=== PATIENT | female | born 1960 | race Caucasian/White ===

== ENCOUNTER 2016-05-22 18:54 | Inpatient (IN) | payer OTHER ==
[~2016-05-22] VITALS: Ht 162.6 cm; Wt 72.1 kg
[2016-05-22 21:21] VITALS: BP 144/85; PULSE 82; TEMP 36.6; O2SAT 95; Ht 162.6 cm; Wt 72.1 kg
[2016-05-22] MEDS ORDERED: ALUMINUM/MAGNESIUM/SIMETH (MAALOX MAX) 30 ML UDC PO PRN (21:45)
[2016-05-22] MEDS ORDERED: POLYETHYLENE (MIRALAX) 17 GM PACK PO PRN (21:45)
[2016-05-22] MEDS ORDERED: ACETAMINOPHEN 325 MG TAB PO PRN (21:45)
[2016-05-22] MEDS ORDERED: CEFTRIAXONE SOD INJ 2,000 MG in DEXTROSE 5% 50ML 50 ML IV SCH (21:45)
[2016-05-22] MEDS ORDERED: MAGNESIUM HYDROXIDE SUSP 30 ML UDC PO PRN (21:45)
[2016-05-22] MEDS ORDERED: ONDANSETRON INJ 2 MG/ML 2 ML VIAL IV PRN (21:45)
[2016-05-22] MEDS: SODIUM CHLORIDE 0.9% 1000ML 1,000 ML IV SCH (21:45)
[2016-05-22] MEDS ORDERED: MoRPHine SULFATE 2 MG/ML CARP IV PRN (22:15)
[2016-05-22] MEDS ORDERED: PATIENT'S ALLERGY INFO NEEDS ENTERED SCH (22:15)
--- NOTE | 2016-05-22 22:19 | History and Physical ---
History & Physical Date & Time of Service: May 22, 2016 at 22:07 Chief Complaint: Acute Kidney Stone Primary Care Physician: Ariel Tejeda D.O. History of Present Illness Source: patient This is a 55 y/o F with a h/o of RA, GERD who presents as a direct transfer from [place] for nephrolithiasis with pyelo and hydronephrosis. She reports having UTI symptoms for the last 2 weeks. She was treated with Macrobid initially but continued to have symptoms despite treatment. She was subsequently taken off the macrobid and told to follow up with Gynecology for persistent burning in her groin area. Clinical Care Leader ordered a U/A and UC that were normal. She presented to [place] ED this morning due to Right sided low back pain. She has had Nausea without vomiting intermittently over the last two weeks. Denies history of nephrolithiasis. She denies fevers, chills, chest pain, shortness of breath, headaches, dizziness , lower extremity weakness, hematuria, melena, hematochezia While at [facility], she had an Abdominal/pelvic CT scan that was remarkable for 4 mm calculus in the Right UV junction with moderate hydronephrosis as well as perinephric fat stranding that reflects pyelonephritis. She also had a Head CT that was negative. Pertinent Labs from [place]: CBC with WBC of 18.5 (81% neutrophils) U/A with positive Nitrites, 2+ chan, 3+ leuck, negative blood, Moderate WBC, CMP- Cr - 1.2, GFR of 49, total chan of 1.2, alt- 103, alk phos of 347 Lactate was normal Social History Smoking Status: Current Every Day Smoker Alcohol Use: occasionally Drug Use: none Housing status: lives with family Allergies Coded Allergies: Amoxicillin (Verified Allergy, Unknown, RASH, 05/22/16) Cefaclor (Verified Allergy, Unknown, HIVES, 05/22/16) Levofloxacin (Verified Allergy, Unknown, Tachycardic, anxious, 05/22/16) Meperidine (Verified Allergy, Unknown, HIVES, 05/22/16) Moxifloxacin (Verified Allergy, Unknown, Tachycardic,anxious, 05/22/16) Nitrofurantoin (Verified Allergy, Unknown, Head Ache, Nausea, 05/22/16) Yellow Jacket (Verified Allergy, Unknown, HIVES, 05/22/16) Home Medications Scheduled Calcium Carbonate-Cholecalcife (Caltrate 600+D), PO BID Cholecalciferol (Vitamin D), PO DAILY Hydroxychloroquine Sulfate (Plaquenil), 200 MG PO BID Naproxen Tab (Naprosyn), 600 MG PO BID Omeprazole (Prilosec), 20 MG PO DAILY Review of Systems Constitutional: No chills, No fever Respiratory: No cough, No dyspnea at rest, No dyspnea on exertion, No shortness of breath, No sputum, No wheezing Cardiovascular: No chest pain Abdomen: + nausea, + pain, No vomiting Musculoskeletal: + muscle pain Genitourinary - Female: + dysuria, + urinary frequency, + urinary urgency Physical Exam Vital Signs Date Time Temp Pulse Resp B/P Pulse Ox O2 Delivery O2 Flow Rate FiO2 05/22/16 21:21 36.6 82 16 144/85 95 Room Air General Appearance: no apparent distress Eyes: normal inspection, PERRL, EOMI ENT: hearing grossly normal Neck: supple, thyroid normal Respiratory/Chest: lungs clear, normal breath sounds, no respiratory distress, no accessory muscle use Cardiovascular: regular rate, rhythm, no edema, no murmur Abdomen/GI: normal bowel sounds, non tender, soft, + pertinent finding ( suprapubic tenderness) Back: + right CVA tenderness Neurologic/Psych: no motor/sensory deficits, alert, normal mood/affect, oriented x 3 Diagnostics Laboratory Results Results Past 24 Hours Test 05/22/16 21:43 Range/Units Microbiology Results 05/22/16 Urine Culture, Ordered Pending Impression Assessment and Plan This is a 55 y/o F who presents with nephrolithiasis, Pyelo and Hydronephrosis Nephrolithiasis with Pyelo and [place]: NPO after midnight Rocephin q24 IV NSS Zofran for Nausea Urology Consult CT from [facility] reviewed above Repeat CBC Am U/a, UC, BC pending Elevated liver enzymes: Repeat cmp in the AM RA: Continue Plaquinil (med rec not completed yet) Gerd: Protonix DVT prophy: Heparin Code: Full Advanced Directives Existing Living Will: Yes Existing Power of Marketing Services Coordinator: Yes (Brittnee Zaman) VTE Prophylaxis VTE Risk Assessment Done? Y/N: Yes Risk Level: Moderate Assessment and Plan Attending Addendum: I have physically seen and examined this patient, have directed their medical care, have supervised the medical residents activities, and agree with the H&P as noted above, with the following changes: NONE ex The patient is awake, well-developed and adequately nourished, alert and oriented 3, normocephalic and atraumatic, lying in bed and in no acute distress. HEENT--PERRL, EOMI, mucous membranes and oropharynx dry. Neck--supple, no JVD or bruits, thyroid normal, trachea midline, no adenopathy. Heart--normal S1 and S2, no extra beats, no murmurs, rubs or gallops. Lungs--clear bilaterally with good air movement, no respiratory distress, no accessory muscle use. Abdomen--normal bowel sounds and soft, nontender and nondistended, no hernias or masses, no organomegaly. Extremities--no cyanosis, clubbing or edema. There are good distal pulses b/l. Dermatologic--normal skin turgor, normal color, warm and dry, no abnormal lymph nodes, no rash. Neurologic--cranial nerves II through XII grossly intact, motor and sensory examination normal. Rheumatologic--normal range of motion, nontender, muscles and joints. Psychiatric--normal affect. Assessment and Plan: 4 mm right UVJ obstructing kidney stone with moderate right hydronephrosis-- patient be made nothing by mouth after midnight. Admitted to the medical surgical floor. Place on normal saline. Ceftriaxone 1 g IV daily. Zofran 4 mg IV every 6 hours when necessary. Protonix 40 mg IV daily. Consult urology.
[2016-05-22] MEDS ORDERED: NPR375 PO (22:40)
[2016-05-22] MEDS ORDERED: HYDR200T5 PO (22:40)
[2016-05-22] MEDS ORDERED: CHOL100010 PO (22:40)
[2016-05-22] MEDS ORDERED: PRLSR20 PO (22:40)
[2016-05-22] MEDS ORDERED: CALC-354 PO (22:40)
[2016-05-22 22:55] LABS: MANUAL MICROSCOPIC REQUIRED? YES; REVIEW REQ? NO; URINE APPEARANCE CLEAR (CLEAR); URINE COLOR RED
[2016-05-22 22:56] LABS: SULFASALICYLIC ACID NEG (NEG)
[2016-05-22 22:58] VITALS: BP 121/79; PULSE 88; TEMP 36.4; O2SAT 95
[2016-05-22 22:59] LABS: URINE BACTERIA NEG (NEG)
[2016-05-23] MEDS: CIPROFLOXACIN 400MG / D5W IV SCH ×2 (03:16→16:57)
[2016-05-23 07:03] VITALS: BP 105/64; PULSE 72; TEMP 36.6; O2SAT 95
[2016-05-23 07:19] LABS: BASO % 0.3 %; BASO ABS # 0.04 K/uL (0-0.2); COMPLETE YES; EOS % 2.9 %; HEMATOCRIT 33.1 % (37-47); IG% 0.4 %; LYMPH % 21.5 %; LYMPH ABS # 2.47 K/uL (1.2-3.4); MEAN CELL VOLUME 88.7 fL (80-100); MEAN CORPUSCULAR HEMOGLOBIN 30.8 pg (25-34); MEAN CORPUSCULAR HGB CONC 34.7 g/dl (32-36); MEAN PLATELET VOLUME 8.7 fL (7.4-10.4); MONO % 10.6 %; NEUT % 64.3 %; PLATELET COUNT 372 K/uL (130-400); RED BLOOD COUNT 3.73 M/uL (4.2-5.4)
[2016-05-23] MEDS ORDERED: TAMSULOSIN HCL 0.4 MG CAP PO ONE (07:30)
[2016-05-23 07:32] LABS: PROTHROMBIN TIME (PATIENT) 10.7 SECONDS (9.0-12.0)
--- NOTE | 2016-05-23 07:46 | Urology Consultation ---
History General Date of Service: May 23, 2016. Chief Complaint: right flank pain Primary Care Physician: Ariel Tejeda D.O. Pt seen a urologist before?: No History of Present Illness 55 yo female transferred to [facility] from [facility] for right flank pain and a CT scan showing a 4mm right UVJ stone. The pt has no previous hx of stones. She reports her pain started early yesterday morning and was accompanied with nausea and dysuria. + subjective fevers as well, although she did not take her temperature. She has been afebrile this admission. White count this morning is 11.5. Cr is pending. Blood and urine cultures pending. She reports her pain has currently improved this morning. + nausea overnight, but now improved as well. Imaging Imaging: CT (performed in [place]) Laboratory Last 24 Hours Test 05/22/16 22:30 05/23/16 06:55 Urine Color RED Urine Appearance CLEAR Urine pH Urine Specific [place] Urine Protein NEG Urine Glucose (UA) Urine Ketones Urine Occult Blood Urine Nitrite Urine Bilirubin Urine Urobilinogen Urine Leukocyte Esterase Urine RBC 10-30 /hpf Urine WBC 5-10 /hpf Urine Epithelial Cells 10-20 /lpf Urine Calcium Oxalate Crystals PRESENT Urine Bacteria NEG White Blood Count 11.50 K/uL Red Blood Count 3.73 M/uL Hemoglobin 11.5 g/dL Hematocrit 33.1 % Mean Corpuscular Volume 88.7 fL Mean Corpuscular Hemoglobin 30.8 pg Mean Corpuscular Hemoglobin Concent 34.7 g/dl Platelet Count 372 K/uL Mean Platelet Volume 8.7 fL Neutrophils (%) (Auto) 64.3 % Lymphocytes (%) (Auto) 21.5 % Monocytes (%) (Auto) 10.6 % Eosinophils (%) (Auto) 2.9 % Basophils (%) (Auto) 0.3 % Neutrophils # (Auto) 7.39 K/uL Lymphocytes # (Auto) 2.47 K/uL Monocytes # (Auto) 1.22 K/uL Eosinophils # (Auto) 0.33 K/uL Basophils # (Auto) 0.04 K/uL RDW Standard Deviation 48.5 fL RDW Coefficient of Variation 15.0 % Immature Granulocyte % (Auto) 0.4 % Immature Granulocyte # (Auto) 0.05 K/uL Prothrombin Time 10.7 SECONDS Prothromb Time International Ratio 1.0 Past History GERD, rheumatoid arthritis Past Surgical History: appendectomy, cholecystectomy, tonsillectomy, other ( breast surgery) Family History Breast cancer, [place] Social History Hx Tobacco Use In Past Year?: Yes Smoking: other (current everyday smoker) Alcohol: occasional Housing status: lives with family Allergies Coded Allergies: Amoxicillin (Verified Allergy, Unknown, RASH, 05/22/16) Cefaclor (Verified Allergy, Unknown, HIVES, 05/22/16) Levofloxacin (Verified Allergy, Unknown, Tachycardic, anxious, 05/22/16) Meperidine (Verified Allergy, Unknown, HIVES, 05/22/16) Moxifloxacin (Verified Allergy, Unknown, Tachycardic,anxious, 05/22/16) Nitrofurantoin (Verified Allergy, Unknown, Head Ache, Nausea, 05/22/16) Yellow Jacket (Verified Allergy, Unknown, HIVES, 05/22/16) Medications Home Medications: Home Meds and Scripts Medications Dose Route/Sig Max Daily Dose Days Date Category Vitamin D (Cholecalciferol) 1,000 Unit Tab PO DAILY 05/22/16 Reported Plaquenil (Hydroxychloroquine Sulfate) 200 Mg Tab 200 Mg PO BID 05/22/16 Reported Prilosec (Omeprazole) 20 Mg Capcr 20 Mg PO DAILY 05/22/16 Reported Naprosyn (Naproxen) 375 Mg Tab 600 Mg PO BID 05/22/16 Reported Caltrate 600+D (Calcium Carbonate-Cholecalcife) 1 Tab Tab PO BID 05/22/16 Reported Inpatient Medications: Current Inpatient Medications Medications (Trade) Dose Ordered Sig/Tez Route Start Time Stop Time Status Last Admin Dose Admin Acetaminophen (Tylenol Tab) 650 mg Q4H PRN PO 05/22/16 21:45 06/21/16 21:44 Al Hydrox/Mg Hydrox/Simethicone (Maalox Max Susp) 15 ml Q4H PRN PO 05/22/16 21:45 06/21/16 21:44 Magnesium Hydroxide (Milk Of Magnesia Susp) 30 ml Q6H PRN PO 05/22/16 21:45 06/21/16 21:44 Polyethylene (Miralax Powder Packet) 17 gm DAILY PRN PO 05/22/16 21:45 06/21/16 21:44 Ondansetron HCl (Zofran Inj) 4 mg Q6H PRN IV 05/22/16 21:45 06/21/16 21:44 05/23/16 03:18 4 MG Heparin Sodium (Porcine) 5000 unit 5,000 unit Q12H SQ 05/22/16 21:45 06/21/16 21:44 UNV Sodium Chloride (Nss 1000ml) 1,000 ml @ 100 mls/hr Q10H IV 05/22/16 21:45 06/21/16 21:44 05/22/16 21:45 100 MLS/HR Morphine Sulfate 2 mg 2 mg Q4H PRN IV 05/22/16 22:15 06/05/16 22:14 Pantoprazole Sodium 40 mg/ Syringe 10 ml @ 5 mls/min DAILY@11 IV 05/23/16 11:00 06/22/16 10:59 Ciprofloxacin/ Dextrose/Prmx (Cipro / D5w/ Premixed D5W) 200 ml @ 100 mls/hr Q12H IV 05/23/16 03:00 06/02/16 02:59 05/23/16 03:16 100 MLS/HR Review of Systems Review of Systems Constitutional: No chills, No fever Eyes: No double vision Neurological: No dizzy Endocrine: No excessive thirst Gastrointestinal: No abdominal pain, No nausea, No vomiting Cardiovascular: No chest pain Respiratory: No shortness of breath Skin: No rash Musculoskeletal: No back pain Female : + painful urination, No blood in urine Physical Exam Vital Signs: Vital Signs Past 12 Hours Date Time Temp Pulse Resp B/P Pulse Ox O2 Delivery O2 Flow Rate FiO2 05/23/16 07:03 36.6 72 20 105/64 95 Room Air 05/23/16 03:52 Room Air 05/22/16 23:30 Room Air 05/22/16 22:58 36.4 88 14 121/79 95 Room Air 05/22/16 21:21 36.6 82 16 144/85 95 Room Air Physical Exam: General Appearance: no apparent distress Eyes: bilateral eyes normal inspection ENT: hearing grossly normal Neck: no JVD Respiratory/Chest: no respiratory distress, no accessory muscle use Cardiovascular: no JVD Extremities: normal inspection Neurologic/Psychiatric: alert, normal mood/affect, oriented x 3 Skin: normal color Assessment & Plan Assessment & Plan A/P: 4mm right UVJ stone AFVSS. No evidence of sepsis at this time. Pain controlled. Stone small enough to pass on its own. Would recommend a trial of passage today with MET. She is agreeable. Would need urgent stent placement in the setting of fever. Will provide a diet today, and make her NPO after midnight in the event she needs stent placement tomorrow for worsening pain. Will start Flomax. Strain all urine. Supportive management with pain control and IVF. Will get a KUB and labs in the AM. Thanks for the consult. Will continue to follow along with primary service at this time.
[2016-05-23 07:50] LABS: BUN/CREATININE RATIO 26.3 (10-20); CREATININE 0.97 mg/dl (0.60-1.20); POTASSIUM 4.5 mmol/L (3.5-5.1)
[2016-05-23 07:53] LABS: ALB/GLOB RATIO 0.8 (0.9-2)
[2016-05-23] MEDS: SODIUM CHLORIDE 0.9% 1000ML 1,000 ML IV SCH ×2 (08:25→18:02)
[2016-05-23] MEDS ORDERED: NURSING VERBAL MED ORDER ONE (08:45)
[2016-05-23] MEDS: HEPARIN SOD 5000 UNIT/0.5 ML CARP SQ SCH ×2 (08:58→20:43)
[2016-05-23] MEDS: PANTOprazole SOD 40 MG TAB PO SCH (09:41)
[2016-05-23] MEDS: CHOLECALCIFEROL 1000 INTER.UNIT TAB PO SCH (09:42)
[2016-05-23] MEDS: HYDROXYCHLOROQUINE SULFATE 200 MG TAB PO SCH ×2 (09:42→20:41)
[2016-05-23] MEDS: CALCIUM 600MG + VIT D 400 IU TAB PO SCH ×2 (09:43→20:40)
[2016-05-23] MEDS ORDERED: PANTOprazole INJ 40 MG in SYRINGE 0 ML IV SCH (11:00)
--- NOTE | 2016-05-23 12:24 | Progress Note ---
Subjective Date of Service: May 23, 2016. Subjective Pt evaluation today including: conversation w/ patient, physical exam, chart review, lab review, review of studies, conversation w/ system sales consultant, review of inpatient medication list Doing well, sitting up in bed, no complaining Review of Systems Constitutional: No chills, No fatigue, No fever, No problem reported, No sweats , No weakness, No weight loss Eyes: No diplopia, No discharge, No eye pain, No redness, No worsening of vision ENT: No dental problems, No hearing loss, No nasal symptoms, No sore throat, No tinnitus, No trouble swallowing, No unusual epistaxis Respiratory: No cough, No dyspnea at rest, No dyspnea on exertion, No hemoptysis, No shortness of breath, No sputum, No wheezing Cardiac: No PND, No chest pain, No claudication, No edema, No orthopnea, No palpitations Abdomen: No constipation, No diarrhea, No nausea, No pain, No vomiting Musculoskeletal: No calf pain, No joint pain, No muscle pain, No swelling Female : No abnormal vaginal bleeding, No dysuria, No hematuria, No incontinence, No urinary frequency, No vaginal discharge Neurologic: No balance problems, No memory loss, No numbness/tingling, No paralysis, No vertigo, No weakness Psychiatric: No anhedonism, No anxiety, No depression symptoms, No insomnia, No substance abuse Heme: No abnormal bleeding/bruising, No clotting problems, No night sweats, No swollen lymph nodes Endo: No excessive thirst, No excessive urination, No fatigue Skin: No bleeding, No color change, No itch, No new/changing skin lesions, No rash Objective Vital Signs Date Time Temp Pulse Resp B/P Pulse Ox O2 Delivery O2 Flow Rate FiO2 05/23/16 09:00 Room Air 05/23/16 07:03 36.6 72 20 105/64 95 Room Air 05/23/16 03:52 Room Air 05/22/16 23:30 Room Air 05/22/16 22:58 36.4 88 14 121/79 95 Room Air 05/22/16 21:21 36.6 82 16 144/85 95 Room Air Physical Exam General Appearance: WD/WN, no apparent distress Eyes: normal inspection, PERRL, EOMI, sclerae normal ENT: normal ENT inspection, hearing grossly normal, pharynx normal Neck: supple, no adenopathy, thyroid normal, no JVD, no carotid bruits, trachea midline Respiratory/Chest: chest non-tender, lungs clear, normal breath sounds, no respiratory distress, no accessory muscle use Cardiovascular: regular rate, rhythm, no edema, no gallop, no JVD, no murmur Abdomen: normal bowel sounds, non tender, soft, no organomegaly, no pulsatile mass, + pertinent finding (bilateral CVA was nontender) Extremities: normal range of motion, non-tender, normal inspection, no pedal edema, no calf tenderness, normal capillary refill, pelvis stable Neurologic/Psychiatric: aircraft machinist II-XII nml as tested, no motor/sensory deficits, alert, normal mood/affect, oriented x 3 Skin: normal color, warm/dry, no rash Lymphatic: no adenopathy Laboratory Results Last 24 Hours Test 05/22/16 22:30 05/23/16 06:55 Urine Color RED Urine Appearance CLEAR Urine pH Urine Specific [place] Urine Protein NEG Urine Glucose (UA) Urine Ketones Urine Occult Blood Urine Nitrite Urine Bilirubin Urine Urobilinogen Urine Leukocyte Esterase Urine RBC 10-30 /hpf Urine WBC 5-10 /hpf Urine Epithelial Cells 10-20 /lpf Urine Calcium Oxalate Crystals PRESENT Urine Bacteria NEG White Blood Count 11.50 K/uL Red Blood Count 3.73 M/uL Hemoglobin 11.5 g/dL Hematocrit 33.1 % Mean Corpuscular Volume 88.7 fL Mean Corpuscular Hemoglobin 30.8 pg Mean Corpuscular Hemoglobin Concent 34.7 g/dl Platelet Count 372 K/uL Mean Platelet Volume 8.7 fL Neutrophils (%) (Auto) 64.3 % Lymphocytes (%) (Auto) 21.5 % Monocytes (%) (Auto) 10.6 % Eosinophils (%) (Auto) 2.9 % Basophils (%) (Auto) 0.3 % Neutrophils # (Auto) 7.39 K/uL Lymphocytes # (Auto) 2.47 K/uL Monocytes # (Auto) 1.22 K/uL Eosinophils # (Auto) 0.33 K/uL Basophils # (Auto) 0.04 K/uL RDW Standard Deviation 48.5 fL RDW Coefficient of Variation 15.0 % Immature Granulocyte % (Auto) 0.4 % Immature Granulocyte # (Auto) 0.05 K/uL Prothrombin Time 10.7 SECONDS Prothromb Time International Ratio 1.0 Sodium Level 141 mmol/L Potassium Level 4.5 mmol/L Chloride Level 108 mmol/L Carbon Dioxide Level 27 mmol/L Anion Gap 6.0 mmol/L Blood Urea Nitrogen 26 mg/dl Creatinine 0.97 mg/dl Est Creatinine Clear Calc Drug Dose 62.3 ml/min Estimated GFR () 75.1 Estimated GFR (Non- 64.8 BUN/Creatinine Ratio 26.3 Random Glucose 93 mg/dl Calcium Level 9.0 mg/dl Total Bilirubin 0.8 mg/dl Aspartate Amino Transf (AST/SGOT) 19 U/L Alanine Aminotransferase (ALT/SGPT) 71 U/L Alkaline Phosphatase 261 U/L Total Protein 6.0 gm/dl Albumin 2.7 gm/dl Globulin 3.3 gm/dl Albumin/Globulin Ratio 0.8 Assessment and Plan 55 y/o F direct transfer from [place] for nephrolithiasis with pyelo and hydronephrosis on 05/22/2016 Per report having UTI symptoms for the last 2 weeks. She was treated with Macrobid initially but continued to have symptoms despite treatment. was subsequently taken off the macrobid and told to follow up with Gynecology for persistent burning in her groin area. [employer] Machine Operator ordered a U/A and UC that were normal. She presented to [place] ED this morning due to Right sided low back pain, Associated with Nausea without vomiting intermittently over the last two weeks. Denies history of nephrolithiasis. While at [place], she had an Abdominal/pelvic CT scan that was remarkable for 4 mm calculus in the Right UV junction with moderate hydronephrosis as well as perinephric fat stranding that reflects pyelonephritis. She also had a Head CT that was negative. Pertinent Labs from [place]: CBC with WBC of 18.5 (81% neutrophils) U/A with positive Nitrites, 2+ chan, 3+ leuck, negative blood, Moderate WBC, CMP- Cr - 1.2, GFR of 49, total chan of 1.2, alt- 103, alk phos of 347 Lactate was normal A/P: 4mm right UVJ stone Pyelonephritis in the right side No evidence of sepsis at this time. Continue antibiotics, IV fluid, Pain controlled. Urology saw patient, Stone small enough to pass on its own. make her NPO after midnight in the event she needs stent placement tomorrow for worsening pain , KUB ordered for tomorrow Continue Flomax. Continue Cipro. Zofran 4 mg IV every 6 hours when necessary. Protonix 40 mg IV daily. DVT prophylaxis covered Continued [facility] stay due to: multiple IV medications needed Discharge planning: home
[2016-05-23 15:04] VITALS: BP 108/65; PULSE 87; TEMP 37; O2SAT 96
[2016-05-23] MEDS ORDERED: TAMSULOSIN HCL 0.4 MG CAP PO SCH (21:00)
[2016-05-24 00:04] VITALS: BP 130/74; PULSE 92; TEMP 36.7; O2SAT 96
[2016-05-24] MEDS: SODIUM CHLORIDE 0.9% 1000ML 1,000 ML IV SCH (02:49)
[2016-05-24] MEDS: CIPROFLOXACIN 400MG / D5W IV SCH (02:49)
[2016-05-24 07:34] VITALS: BP 118/71; PULSE 83; TEMP 36.5; O2SAT 96
[2016-05-24 07:46] LABS: MEAN CELL VOLUME 92.7 fL (80-100); MEAN CORPUSCULAR HEMOGLOBIN 31.2 pg (25-34); MEAN CORPUSCULAR HGB CONC 33.7 g/dl (32-36); MEAN PLATELET VOLUME 9.2 fL (7.4-10.4); PLATELET COUNT 423 K/uL (130-400); WHITE BLOOD COUNT 8.32 K/uL (4.8-10.8)
--- NOTE | 2016-05-24 07:53 | DIAGNOSTIC IMAGING REPORT ---
KUB CLINICAL HISTORY: Nephrolithiasis. Reported history of right vesicoureteral junction stone. FINDINGS: 2 AP supine abdominal radiographs are obtained. No prior studies are available for comparison at the time of dictation. There is a nonobstructed abdominal bowel gas pattern noting moderate colonic fecal retention. Cholecystectomy clips are identified. No calcifications are seen projecting over either kidney or along the course of the right ureter. There is a 4 mm calcification in the left hemipelvis which is indeterminant. An additional phlebolith is noted in the left pelvis. The skeletal structures appear osteopenic. The bony structures appear intact. IMPRESSION: 1. No calcifications are seen projecting over either kidney or along the course of the right ureter. 2. There is a 4 mm calcification the left hemipelvis. This is indeterminant and could represent a left pelvic phlebolith or possibly a distal left ureteral stone. 3. Moderate constipation. Electronically signed by: Yaniv Patino M.D. 05/24/2016 7:51 AM Dictated Date/Time: 05/24/2016 7:49 AM
--- NOTE | 2016-05-24 07:56 | DIAGNOSTIC IMAGING REPORT ---
CHEST 2 VIEWS ROUTINE CLINICAL HISTORY: PRE-OP COMPARISON STUDY: No previous studies for comparison. FINDINGS: The heart is at the upper limits of normal in size. There is no failure. There is no focal pulmonary consolidation. There is minor blunting of the right lateral costophrenic angle. A trace effusion cannot be excluded.[ IMPRESSION: Minor blunting of the right lateral costophrenic angle. No evidence of failure. No evidence of focal pulmonary consolidation Electronically signed by: Buck Gaytan M.D. 05/24/2016 7:54 AM Dictated Date/Time: 05/24/2016 7:54 AM
[2016-05-24 08:20] LABS: BUN/CREATININE RATIO 26.5 (10-20); CALCIUM 9.8 mg/dl (8.5-10.1); CREATININE 0.86 mg/dl (0.60-1.20); POTASSIUM 4.2 mmol/L (3.5-5.1)
[2016-05-24] MEDS: CALCIUM 600MG + VIT D 400 IU TAB PO SCH (08:57)
[2016-05-24] MEDS: HYDROXYCHLOROQUINE SULFATE 200 MG TAB PO SCH (08:57)
[2016-05-24] MEDS: PANTOprazole SOD 40 MG TAB PO SCH (08:58)
[2016-05-24] MEDS: CHOLECALCIFEROL 1000 INTER.UNIT TAB PO SCH (08:58)
[2016-05-24] MEDS: HEPARIN SOD 5000 UNIT/0.5 ML CARP SQ SCH (09:05)
--- NOTE | 2016-05-24 10:39 | Progress Note ---
Subjective Date of Service: May 24, 2016. Subjective Pt evaluation today including: conversation w/ patient, chart review, lab review Voiding: no voiding problems 55 yo female with 4mm right UVJ stone. Pt denies passing the stone overnight. Denies any pain since last I saw her yesterday. Reports she is ready to go home. Denies n/v. + some dysuria, but denies hematuria. She is afebrile. White count has normalized. Cr is normal. UC&S is pending. Noted to have nitrite positive UA from [facility]. She did have KUB this morning, which I have reviewed. The right UVJ stone is not visualized. Left pelvic calcification noted. ? left ureteral stone. Review of Systems Constitutional: No chills, No fever Respiratory: No shortness of breath Cardiac: No chest pain Abdomen: No nausea, No pain, No vomiting Female : + dysuria, + see HPI, No hematuria Heme: No abnormal bleeding/bruising Objective Vital Signs Date Time Temp Pulse Resp B/P Pulse Ox O2 Delivery O2 Flow Rate FiO2 05/24/16 07:34 36.5 83 16 118/71 96 Room Air 05/24/16 00:04 36.7 92 16 130/74 96 Room Air 05/23/16 20:20 Room Air 05/23/16 15:04 37.0 87 18 108/65 96 Room Air Physical Exam General Appearance: no apparent distress Eyes: normal inspection ENT: hearing grossly normal Neck: no JVD Respiratory/Chest: no respiratory distress, no accessory muscle use Cardiovascular: no JVD Extremities: normal inspection Neurologic/Psychiatric: alert, normal mood/affect, oriented x 3 Skin: normal color Laboratory Results Last 24 Hours Test 05/24/16 07:15 White Blood Count 8.32 K/uL Red Blood Count 4.10 M/uL Hemoglobin 12.8 g/dL Hematocrit 38.0 % Mean Corpuscular Volume 92.7 fL Mean Corpuscular Hemoglobin 31.2 pg Mean Corpuscular Hemoglobin Concent 33.7 g/dl RDW Standard Deviation 51.2 fL RDW Coefficient of Variation 15.2 % Platelet Count 423 K/uL Mean Platelet Volume 9.2 fL Sodium Level 140 mmol/L Potassium Level 4.2 mmol/L Chloride Level 106 mmol/L Carbon Dioxide Level 29 mmol/L Anion Gap 5.0 mmol/L Blood Urea Nitrogen 23 mg/dl Creatinine 0.86 mg/dl Est Creatinine Clear Calc Drug Dose 70.3 ml/min Estimated GFR () 86.9 Estimated GFR (Non- 75.0 BUN/Creatinine Ratio 26.5 Random Glucose 101 mg/dl Calcium Level 9.8 mg/dl Assessment and Plan A/P: 4mm right UVJ stone AFVSS. Pain resolved. Stone not visualized on KUB. ? Passed. ? distal left ureteral stone on KUB vs pelvic phlebolith. CT report from [place] notes several small bilateral renal stones, however no ureteral stones noted at that time and the pt denies pain this morning. Would avoid stent placement for now as her pain has resolved. Recommend outpatient f/u in 1-2 weeks with an IVP to ensure resolution of right ureteral stone and evaluate for left ureteral stone. Pt instructed to return to [facility] for severe pain or fever >101.5F. Would recommend d/c home on 5 days of Cipro (given her nitrite positive UA from [place]) as well as oral pain medication. No further management at this time. Pt OK for d/c home when OK with primary service. Thanks for allowing us to participate in this pt's care. Discharge planning: home
[2016-05-24] MEDS ORDERED: CEFU250T15 PO (11:17)
[2016-05-24] MEDS ORDERED: FLM4 PO (11:17)
--- NOTE | 2016-05-24 11:19 | Discharge Instructions ---
Discharge Instructions Date of Service May 24, 2016. Admission Reason for Admission: Nephrolithiasis, Peylonephritis Discharge Discharge Diagnosis / Problem: kidney stone, possible pyelonephritis Discharge Goals Goal(s): Decrease discomfort, Improve function, Increase independence, Improve disease control, Improve nutritional status, Learn about illness, Diagnostic testing, Therapeutic intervention, Prevent Disease Progression Activity Recommendations Activity Limitations: resume your previous activity . Instructions / Follow-Up Instructions / Follow-Up you possible have nephrolithiasis with pyelonephritis you need to continue oral antibiotics for 7 days more you was having allergic reaction to Amoxicillin, I am giving you Ceftin, which has cause allergic reaction, report to your pcp if have any rash you have to have outpatient f/u in 1-2 weeks with urologist for the plan of IVP to ensure resolution of right ureteral stone and evaluate for left ureteral stone. and instructed to return to [facility] for severe pain or fever >101.5F. - you need to follow up with your primary care physician in 1 week, - take medication as instructed, never overdose or any misuse, or take with alcohol, because misuse of medicine may cause organ damage or , call your primary care physician if have questions of medicaitons. - call your primary care physician OR go to local emergency room if has any fever/chill, chest pain, shortness of breathing, nausea/vomiting/abdominal pain , facial droop/slurry speech/local weakness, or if has any questions. - fall precaution - diet as instructed - you need to follow up with your subspecialist - you should understand that it is important to follow up the above instruction , and "not following the above instruction" may cause delayed or missed care of your medical conditions which may cause permanent organ damage and even . Current Hospital Diet Patient's current hospital diet: Regular Diet Discharge Diet Recommended Diet: AHA Diet (Heart Healthy) Pending Studies Studies pending at discharge: no Medical Emergencies . Who to Call and When: Medical Emergencies: If at any time you feel your situation is an emergency, please call 911 immediately. . Non-Emergent Contact Non-Emergency issues call your: Primary Care Provider, Urologist Call Non-Emergent contact if: you have a fever . . "Provider Documentation" section prepared by Scottie Ji. VTE Core Measure Inpt VTE Proph given/why not?: Unfractionated heparin SQ
[2016-05-24 12:11] VITALS: BP 118/71; PULSE 83; TEMP 36.5; O2SAT 96
--- NOTE | 2016-05-24 12:55 | Discharge Summary ---
Discharge Summary Date of Service May 24, 2016. Discharge Summary Admission Date: May 22, 2016 at 21:15 Discharge Date: May 24, 2016 Discharge Disposition: Home Principal Diagnosis: nephrolithiasis with pyelonephritis Problems/Secondary Diagnoses: I Procedures: No Consultations: Urologist Medication Reconciliation New Medications: Cefuroxime Axetil (Ceftin) 250 Mg Tab 250 MG PO BID for 7 Days, #14 TAB Tamsulosin HCl (Tamsulosin HCl) 0.4 Mg Cap 0.4 MG PO HS for 14 Days, CAP Continued Medications: Calcium Carbonate-Cholecalcife (Caltrate 600+D) 1 Tab Tab PO BID Cholecalciferol (Vitamin D) 1,000 Unit Tab PO DAILY Hydroxychloroquine Sulfate (Plaquenil) 200 Mg Tab 200 MG PO BID, TAB Naproxen Tab (Naprosyn) 375 Mg Tab 600 MG PO BID, TAB Omeprazole (Prilosec) 20 Mg Capcr 20 MG PO DAILY, CAP Discharge Exam Doing well, although bed to the chair, and walk, no fever and chill, denied dysuria or abdominal pain Review of Systems: Constitutional: No chills, No fatigue, No fever, No problem reported, No sweats, No weakness, No weight loss Eyes: No diplopia, No discharge, No eye pain, No problem reported, No redness, No worsening of vision ENT: No dental problems, No hearing loss, No nasal symptoms, No problem reported, No sore throat, No tinnitus, No trouble swallowing, No unusual epistaxis Respiratory: No cough, No dyspnea at rest, No dyspnea on exertion, No hemoptysis, No problem reported, No shortness of breath, No sputum, No wheezing Cardiovascular: No PND, No chest pain, No claudication, No edema, No orthopnea, No palpitations, No problem reported Abdomen: No GI bleeding, No constipation, No diarrhea, No nausea, No pain, No problem reported, No vomiting Musculoskeletal: No calf pain, No joint pain, No muscle pain, No problem reported, No swelling Genitourinary - Female: No dysmenorrhea, No dysuria, No hematuria, No menorrhagia, No metrorrhagia, No , No problem reported, No rash, No urinary frequency, No urinary incontinence, No urinary retention, No urinary urgency, No vaginal bleeding, No vaginal discharge, No vaginal itching, No vulvodynia Neurologic: No balance problems, No memory loss, No numbness/tingling, No paralysis, No problem reported, No vertigo, No weakness Psychiatric: No anhedonism, No anxiety, No depression symptoms, No insomnia , No problem reported, No substance abuse Endocrine: No excessive thirst, No excessive urination, No fatigue, No problem reported Hematologic / Lymphatic: No abnormal bleeding/bruising, No clotting problems , No night sweats, No problem reported, No swollen lymph nodes Physical Exam: General Appearance: WD/WN, no apparent distress, + obese Eyes: normal inspection, PERRL, EOMI ENT: normal ENT inspection, hearing grossly normal Neck: supple, no adenopathy, thyroid normal Respiratory/Chest: chest non-tender, no respiratory distress, no accessory muscle use, + decreased breath sounds Cardiovascular: regular rate, rhythm, no edema, no gallop, normal peripheral pulses Abdomen / GI: normal bowel sounds, non tender, soft, no organomegaly, no pulsatile mass Extremities: normal inspection, no calf tenderness, normal capillary refill , no pedal edema, normal range of motion Neurologic/Psychiatric: food stand manager II-XII nml as tested, no motor/sensory deficits , alert, normal mood/affect, normal reflexes Skin: normal color, warm/dry Hospital Course 55 y/o F direct transfer from [place] for nephrolithiasis with pyelo and hydronephrosis on 05/22/2016 Per report having UTI symptoms for the last 2 weeks. She was treated with Macrobid initially but continued to have symptoms despite treatment. was subsequently taken off the macrobid and told to follow up with Gynecology for persistent burning in her groin area. Foam Charger ordered a U/A and UC that were normal. She presented to [place] ED this morning due to Right sided low back pain, Associated with Nausea without vomiting intermittently over the last two weeks. Denies history of nephrolithiasis. While at [place], she had an Abdominal/pelvic CT scan that was remarkable for 4 mm calculus in the Right UV junction with moderate hydronephrosis as well as perinephric fat stranding that reflects pyelonephritis. She also had a Head CT that was negative. Pertinent Labs from [place]: CBC with WBC of 18.5 (81% neutrophils) U/A with positive Nitrites, 2+ chan, 3+ leuck, negative blood, Moderate WBC, CMP- Cr - 1.2, GFR of 49, total chan of 1.2, alt- 103, alk phos of 347 Lactate was normal A/P: 4mm right UVJ stone Pyelonephritis in the right side No evidence of sepsis at this time. Continue antibiotics, IV fluid, Pain controlled. Urology saw patient, Stone small enough to pass on its own.KUB ordered which she was not remarkable Continue Flomax. Has been on Cipro, iv, changed to Ceftin upon discharge, patient allergic to Levaquin, discuss about the risk and benefit and the choice of antibiotics, patient said Levaquin make her feel very bad, and she understands the possible same kind of side effects from Cipro, she do not want to continue Cipro. Therefore Ceftin. Patient has allergy to amoxicillin, causes rash, I also told her Ceftin may have the same side effect of allergy which caused rash,, 5% risk , she understand and agreed and willing to take in the risks. Also told the patient to keep appointment with urologist as instructed Continue Zofran 4 mg IV every 6 hours when necessary. Protonix 40 mg IV daily. DVT prophylaxis covered Instructions / Follow-Up you possible have nephrolithiasis with pyelonephritis you need to continue oral antibiotics for 7 days more you was having allergic reaction to Amoxicillin, I am giving you Ceftin, which has cause allergic reaction, report to your pcp if have any rash you have to have outpatient f/u in 1-2 weeks with urologist for the plan of IVP to ensure resolution of right ureteral stone and evaluate for left ureteral stone. and instructed to return to [facility] for severe pain or fever >101.5F. - you need to follow up with your primary care physician in 1 week, - take medication as instructed, never overdose or any misuse, or take with alcohol, because misuse of medicine may cause organ damage or , call your primary care physician if have questions of medicaitons. - call your primary care physician OR go to local emergency room if has any fever/chill, chest pain, shortness of breathing, nausea/vomiting/abdominal pain , facial droop/slurry speech/local weakness, or if has any questions. - fall precaution - diet as instructed - you need to follow up with your subspecialist - you should understand that it is important to follow up the above instruction , and "not following the above instruction" may cause delayed or missed care of your medical conditions which may cause permanent organ damage and even . Total Time Spent: Greater than 30 minutes This includes examination of the patient, discharge planning, medication reconciliation, and communication with other providers. Discharge Instructions Please refer to the electronic Patient Visit Report (Discharge Instructions) for additional information. Additional Copies To Hipolito Hernandez M.D.; Hipolito Chaudhry M.D.
== END 2016-05-24 12:55 | disposition home or self-care (01) | DRG 694 ==
LOC: MERGE 21:15 → UNMERGE 21:15 → C.MSN 21:15
PROVIDERS: ADMIT Family Medicine; ATTEND Hospitalist
DX: N13.2 Hydronephrosis with renal and ureteral calculous obstruction (principal); N20.1 Calculus of ureter; R74.8 Abnormal levels of other serum enzymes; M06.9 Rheumatoid arthritis, unspecified; K21.9 Gastro-esophageal reflux disease without esophagitis; F17.200 Nicotine dependence, unspecified, uncomplicated; Z79.1 Long term (current) use of non-steroidal anti-inflammatories (NSAID); Z79.899 Other long term (current) drug therapy; Z88.0 Allergy status to penicillin; Z88.1 Allergy status to other antibiotic agents; Z88.5 Allergy status to narcotic agent; Z82.49 Family history of ischemic heart disease and other diseases of the circulatory system; Z80.3 Family history of malignant neoplasm of breast

== ENCOUNTER → 2016-06-01 | Outpatient (CLI) | payer OTHER ==
[~2016-06-01] MED LIST: CALC-354 PO; CEFU250T15 PO; CHOL100010 PO; FLM4 PO; HYDR200T5 PO; NPR375 PO; OPTIRAY 300 IV PRN; PRLSR20 PO
--- NOTE | 2016-06-01 15:15 | DIAGNOSTIC IMAGING REPORT ---
IVP W/OR W/O TOMOGRAMS CLINICAL HISTORY: N20.0 Nephrolithiasis COMPARISON STUDY: Conventional radiographic study dated 05/24/2016 FINDINGS: Traveling Secretary film reveals a stable left pelvic basin calcification. There is no pathologic bowel dilatation. There are no calcification suspicious for renal calculi. There are surgical clips in the right upper quadrant consistent with a prior cholecystectomy. The patient was injected with 100 cc of Optiray 320. The 1 minute film reveals prompt bilateral nephrograms. No nephrotomographic defects are visualized. Single nondilated ureters drain each kidney. The left pelvic basin calcification described on the coordinator of genetic services radiograph is extra ureteral and likely represents a phlebolith. There are no obstructive changes. No bladder abnormalities are visualized. The patient voided nearly completely. IMPRESSION: Unremarkable intravenous urogram. No obstructing calculi are visualized. Electronically signed by: Buck Gaytan M.D. 06/01/2016 3:13 PM Dictated Date/Time: 06/01/2016 3:11 PM
== END | disposition home or self-care (01) ==
LOC: C.RAD 12:21 → MERGE 13:00 → UNMERGE 13:00
PROVIDERS: ATTEND Nurse Practitioner Adult Health
DX: N20.0 Calculus of kidney (principal)